=== PATIENT | female | born 2000 | race Two or more races ===

== ENCOUNTER 2020-05-12 19:21 | Emergency (ER) | payer MEDICAID ==
[~2020-05-12] VITALS: Ht 162.6 cm; Wt 68.9 kg
[2020-05-12] MEDS ORDERED: MORPHINE SULFATE 4 MG/ML SYR/VIAL IV ONE (22:15)
[2020-05-12] MEDS ORDERED: ONDANSETRON HCL 4 MG/2 ML VIAL IV ONE (22:15)
[2020-05-12] MEDS ORDERED: diphenhdrAMINE HCL 50 MG/1 ML VL IV ONE (22:45)
[2020-05-12 22:48] LABS: Basophils # (auto) 0 10 ^3/uL (0-0.2); Basophils % (auto) 0.1 % (0.0-2.0); Eosinophils # (auto) 0 10 ^3/uL (0-0.8); Hematocrit 43.3 % (36.0-46.0); Hemoglobin 15.1 g/dL (12.2-16.2); Lymphocytes # (auto) 1.3 10 ^3/uL (0.4-5.4); Lymphocytes % (auto) 9.9 % (10.0-50.0); Mean Corpuscular Hemoglobin 30.1 pg (28.0-32.0); Mean Corpuscular Hgb Conc. 34.8 g/dL (32.0-36.0); Mean Corpuscular Volume 86.6 fL (80.0-100.0); Monocytes % (auto) 7.6 % (0.0-12.0); Neutrophils # (auto) 10.8 10 ^3/uL (1.6-8.6); Neutrophils % (auto) 82.4 % (37.0-80.0); Platelet Count (auto) 204 10^3/uL (140-450); White Blood Cell 13.1 10^3/uL (4.4-10.8)
[2020-05-12 23:18] LABS: Potassium 3.5 mmol/L (3.5-5.1)
[2020-05-12 23:20] LABS: INR 1.17 (0.9-1.15); Partial Thromboplastin Time 27.9 sec (23.0-31.2)
[2020-05-12 23:24] LABS: Albumin 4.9 g/dL (3.4-5.0); BUN/Creatinine Ratio 13.3; Bilirubin, Total 0.6 mg/dL (0.2-1.0); Calcium 9.3 mg/dL (8.5-10.1); Total Protein 9.1 g/dL (6.4-8.2)
[2020-05-12] MEDS ORDERED: SODIUM CHLORIDE 0.9% 1,000 ML IV ONE (23:30)
[2020-05-13 00:13] VITALS: BP 109/68
== END 2020-05-12 23:09 | disposition short-term general hospital (02) ==
LOC: EDBD 19:21 → ER 19:21
DX: S32.411A Displaced fracture of anterior wall of right acetabulum, initial encounter for closed fracture (principal); S32.471A Displaced fracture of medial wall of right acetabulum, initial encounter for closed fracture; Z88.6 Allergy status to analgesic agent; Z88.8 Allergy status to other drugs, medicaments and biological substances; Z20.822 Contact with and (suspected) exposure to COVID-19; X58.XXXA Exposure to other specified factors, initial encounter; Y93.89 Activity, other specified; Y92.89 Other specified places as the place of occurrence of the external cause; Y99.8 Other external cause status
CPT/HCPCS: 36415; 72070; 74176; 80053; 85025; 85610; 85730; 87426; 96361; 96374; 96375; 99285; J1200; J2270; J2405